=== PATIENT | female | born 2000 | race African-American/Black ===

== ENCOUNTER 2021-08-21 09:21 | Emergency (ER) | payer BC, OTHER ==
[~2021-08-21] VITALS: Ht 167.6 cm; Wt 59.1 kg
[~2021-08-21 09:21] MED LIST: BIRTH CONTROL; MUPI22OI2 TP; PHEN-444 PO; SULF1TAB24 PO
[2021-08-21] MEDS ORDERED: IV NORMAL SALINE 1000ML BAG 1,000 ML IV ONE (10:15)
[2021-08-21] MEDS ORDERED: IBUPROFEN 200 MG TABLET. PO ONE (10:15)
[2021-08-21] MEDS ORDERED: ACETAMINOPHEN 500 MG TABLET PO ONE (10:15)
[2021-08-21 10:31] LABS: INFLUENZA A PATIENT NEGATIVE (NEGATIVE); INFLUENZA B PATIENT NEGATIVE (NEGATIVE)
--- NOTE | 2021-08-21 10:47 | RAD ---
XR CHEST 1V INDICATION: Fever, cough, PUI COMPARISON STUDY: None. FINDINGS: Lungs: Normal lung volume. No pulmonary mass or consolidation. The tracheobronchial tree and hilar st ructures are normal. Pleura: No pleural effusion or pneumothorax. Heart and Mediastinum: The cardiomediastinal silhouette is normal. The great vessels of the thorax ar e normal. Bones and Soft Tissues: The bones and soft tissues are within normal limits. IMPRESSION: No consolidation. Electronically signed by: Weston Dickerson MD (08/21/2021 10:44 AM) [id number]
--- NOTE | 2021-08-21 11:20 | PHYS DOC ---
Past Medical History Past Medical History: No Pertinent History Past Surgical History: No Surgical History Smoking Status: Never Smoker Alcohol Use: None Drug Use: None General Adult EDM: Chief Complaint: FEVER HPI: HPI: Patient is a 21 year old female presents emergency department complaining of sore throat nonproductive cough fever and chills with fatigue for the past 2 days. Patient reports she works at [employer] and was sent here by her boss to have Covid testing. Patient denies receiving the COVID-19 virus vaccination series, has not received a flu shot for 2020, reports last menstrual cycle started yesterday with normal normal flow. Denies chest pain, headaches, loss of taste or loss of smell, denies dizziness, syncopal or near syncopal episodes, denies other physical complaints or physical concerns, denies history of cigarette smoking, alcohol consumption or drug use. Review of Systems: Review of Systems: 14 body systems of review of systems have been reviewed. See HPI for pertinent positives and negative responses, otherwise all other systems are negative, nonpertinent or noncontributory. Constitutional: Negative except as outlined in HPI above. Skin: Negative except as outlined in HPI above. Eyes: Negative except as outlined in HPI above. HENT: Negative except as outlined in HPI above. Respiratory: Negative except as outlined in HPI above. Cardiovascular: Negative except as outlined in HPI above. GI: Negative except as outlined in HPI above. : Negative except as outlined in HPI above. Musculoskeletal: Negative except as outlined in HPI above. Integument: Negative except as outlined in HPI above. Neurologic: Negative except as outlined in HPI above. Endocrine: Negative except as outlined in HPI above. Lymphatic: Negative except as outlined in HPI above. Psychiatric: Negative except as outlined in HPI above. Heart Score: C/O Chest Pain: No Risk Factors: Risk Factors: DM, Current or recent (<one month) smoker, HTN, HLP, family history of CAD, obesity. Risk Scores: Score 0 - 3: 2.5% MACE over next 6 weeks - Discharge Home Score 4 - 6: 20.3% MACE over next 6 weeks - Admit for Clinical Observation Score 7 - 10: 72.7% MACE over next 6 weeks - Early Invasive Strategies Current Medications: Current Medications Medications (Trade) Dose Ordered Sig/Heidy Start Time Stop Time Status Last Admin Dose Admin Acetaminophen (Tylenol) 1,000 mg 1X ONCE 08/21/21 10:15 08/21/21 10:16 DC 08/21/21 10:44 1,000 MG Ibuprofen (Motrin) 600 mg 1X ONCE 08/21/21 10:15 08/21/21 10:16 DC 08/21/21 10:44 600 MG Sodium Chloride 1,000 ml @ 1,000 mls/hr 1X ONCE 08/21/21 10:15 08/21/21 11:14 08/21/21 10:37 1,000 MLS/HR Allergies: Allergies: Allergies Coded Allergies Type Severity Reaction Last Updated Verified No Known Drug Allergies 04/17/15 No Physical Exam: PE: Constitutional: Well developed, well nourished, no acute distress, non-toxic appearance. 21-year-old female in no apparent distress. HENT: Normocephalic, atraumatic. Oropharynx moist, mild peritonsillar erythema without exudative drainage, no uvular edema or deviation, no postnasal drip, no laryngeal edema, no drooling, no trismus, patient speaking in normal voice tones. Bilateral TMs within normal limits, intact, no drainage from external auditory canals. No lymphadenopathy of the head or neck appreciated. Eyes: Conjunctiva normal, no discharge. Neck: Normal range of motion, no stridor. Cardiovascular: No cyanosis appreciated, distal cap refill less than 2 seconds. Regular rate and rhythm Lungs & Thorax: Patient is in no respiratory distress, no audible adventitious l dominique sounds appreciated. Lung sounds clear to auscultate all lung mendoza, normal work of breathing. Abdomen: Nontender, no abnormalities noted. Skin: Warm, dry, no erythema, no rash. Back: No tenderness, no deformities. Extremities: No tenderness, no cyanosis, no clubbing, ROM intact, no edema. Neurologic: Alert and oriented X 3, normal motor function, normal sensory function, no focal deficits noted. Psychologic: Affect normal, judgement normal, mood normal. Current Patient Data: Labs: Laboratory Tests Test 08/21/21 10:02 08/21/21 10:07 Influenza Type A Antigen Negative (NEGATIVE) Influenza Type B Antigen Negative (NEGATIVE) SARS-CoV-2 Antigen (Rapid) Positive (NEGATIVE) *A Group A Streptococcus Rapid Negative (NEGATIVE) Vital Signs: Vital Signs Date Time Temp Pulse Resp B/P (MAP) Pulse Ox O2 Delivery O2 Flow Rate FiO2 08/21/21 10:46 105 18 96/68 (77) 99 Room Air 08/21/21 09:30 101.8 101.8 EKG: EKG: [] Radiology/Procedures: Radiology/Procedures: STATUS: REG ER ORD. PHYSICIAN: BAILEY TORRES APRN REASON: Fever, cough, PUI PROCEDURE: CHEST AP ONLY XR CHEST 1V INDICATION: Fever, cough, PUI COMPARISON STUDY: None. FINDINGS: Lungs: Normal lung volume. No pulmonary mass or consolidation. The tracheobronchial tree and hilar structures are normal. Pleura: No pleural effusion or pneumothorax. Heart and Mediastinum: The cardiomediastinal silhouette is normal. The great vessels of the thorax are normal. Bones and Soft Tissues: The bones and soft tissues are within normal limits. IMPRESSION: No consolidation. Electronically signed by: Weston Dickerson MD (08/21/2021 10:44 AM) [id number] Course & Med Decision Making: Course & Med Decision Making Pertinent Labs and Imaging studies reviewed. (See chart for details) 21-year-old female, vital signs reviewed, presents emergency department concerning fevers/chills/nonproductive cough/needing COVID-19 testing for the past 2 days. Physical examination consistent with viral illness, will order COVID-19 testing, flu testing, rapid strep, chest x-ray, will treat tachycardia of 106 with normal saline 1 L, temperature of 101.3 oral temp with 1 g Tylenol, 600 mg ibuprofen p.o. Upon reevaluation of the patient, oral temp 98.3 taken by myself at bedside. Patient's pulse 91, patient's rapid strep negative, rapid flu negative, rapid COVID-19 testing positive. Discussed findings with patient, discussed with patient will attach COVID-19 virus information to this document, please review, will give work excuse, discussed follow-up with primary care, strict return to ER precautions or concerns, home care of the COVID-19 virus infection, patient gave verbal understanding of and is amenable to ED discharge planning. Discussed with the patient all findings and diagnostic testing as well as the need to follow-up with their primary care provider for further evaluation and treatment or return to the ED if any new or worsening symptoms. Strict return precautions were also discussed at length, the patient voiced understanding and agreement with the discharge planning. The patient was nontoxic in appearance, in no apparent distress, and hemodynamically stable at the time of disposition. Heather Disclaimer: Heather Disclaimer: This electronic medical record was generated, in whole or in part, using a voice recognition dictation system. Departure Departure Impression: Primary Impression: COVID-19 virus infection Disposition: HOME / SELF CARE / HOMELESS Condition: GOOD Referrals: Mushtaq MAE MD (PCP) Additional Instructions: You were seen in the emergency department today for fever and chills with a sore throat and cough with generalized fatigue. Your flu testing and strep testing were negative. However your COVID-19 rapid testing is positive. I have at tached COVID-19 virus information to this document please review. Your chest x- ray did not show signs of a Covid pneumonia however it is difficult to experience periods of difficulty breathing with cough during the Covid virus infectious process. You may take [id number] Tylenol and or Motrin for ongoing aches and pains, with the COVID-19 virus it is expected to have aches a nd pains with generalized fatigue and intermittent fevers. Please increase fluid intake at home to help assist with a speedy recovery. I have provided you a work excuse, please follow your employers procedures for returning back to work after COVID-19 virus positive test. Return to the emergency department for worsening symptoms or other concerns. Please follow-up with your primary care physician Dr. Mae for ongoing symptoms. Thank you for visiting our Emergency Department. It was a pleasure taking care of you today in the emergency department and we appreciate you trusting us with your care. If any additional problems come up don't hesitate to return to visit us. Please follow up with your primary care provider so they can plan additional care if needed and know about the problem that you had. If symptoms worsen come back to the Emergency Department. Any concerning symptoms that start such as chest pain, shortness of air, weakness or numbness on one side of the body, running high fevers or any other concerning symptoms return to the ER. You have been tested for or diagnosed with COVID-19. It is an infection caused by a new type of coronavirus. COVID-19 will cause cold-like or mild flu symptoms in most. It can cause more severe symptoms like problems breathing in some. There is no treatment for COVID-19. The body will clear the infection over time. Self-care will help to ease discomfort. Steps to Take: Self-Care Rest as needed. Healthy habits may help you feel better. Steps include: Choose healthy foods including fruits and vegetables. Drink water throughout the day. Get plenty of sleep each night. If you smoke, try to quit. It may ease breathing. Avoid alcohol. Keep Others Healthy The virus can spread to others. Droplets are released every time you sneeze or cough. The droplets can get into the mouth, nose, or eyes of people near you and lead to infection. To lower the chances of spreading COVID-19 to others: Stay at home until your doctor has said it is safe to leave. If you tested positive this will mean staying isolated until both of the following are true: At least 7 days have passed since the start of illness. You are free of fever for at least 72 hours without the use of medicine. During this time: - Avoid public areas, events, or transportation. Do not return to work or school until your doctor has said it is safe to do so. - Call ahead if you need to go to a medical center. Let them know you may have COVID-19. It will help them guide you where to go. They may also ask you to wear a facemask when you come to the office. - If you call for emergency medical services, let them know you may have COVID- 19. While at home: - Try to avoid close contact with others. Stay about 6 feet away. - If possible, spend most of your time in a separate room from others. - Use a face mask if you will be in close contact with others such as sharing a room or vehicle. - Have someone wipe down common surfaces in the home. Use household sap bpc developer every day on areas like doorknobs, counters, or sinks. - Cough or sneeze into a tissue. Throw the tissue away right after use. If a tissue is not available, cough or sneeze into your elbow. - Wash your hands often. Wash them after sneezing or coughing. Use soap and water and wash for at least 20 seconds. Alcohol based hand cleaner housekeeping can be used if soap and water is not available. - Do not prepare food for others. Avoid sharing personal items like forks, spoons, or toothbrushes. - Avoid close contact with pets while you are sick. There is no evidence of the virus passing to pets. This is a safety step until more is known about this virus. Isolation can be frustrating. Social interaction can help. Keep in touch with friends and family through phone and tech options. You can still interact with others in you r home, just keep a safe distance of about 6 feet. Follow-up: Your doctors office will check in with you to see if there are any changes in your health. You may be asked to keep track of symptoms to share with them. They will also let you know when you are clear to be in public again. Problems to Look Out For: Contact your doctor if your recovery is not going as you expect. Get emergency care if you have problems such as: - Trouble breathing - Nonstop chest pain or pressure - Changes in awareness, confusion, or problems waking - Lips or face have bluish color - Worsening of symptoms If you think you have an emergency, call for emergency medical services right away. As taken from [facility] BAILEY TORRES APRN Aug 21, 2021 11:20
[2021-08-21 11:29] VITALS: BP 105/66
== END 2021-08-21 11:37 | disposition home or self-care (01) ==
LOC: ER 09:21
DX: U07.1 COVID-19 (principal)
CPT/HCPCS: 71045; 87070; 87426; 87804; 87880; 96360; 99284; J7030